=== PATIENT | male | born 1960 | race Hispanic/Latino ===

== ENCOUNTER 2020-09-21 08:26 | Outpatient (CLI) | payer BC | END 2020-09-21 08:27 | disposition home or self-care (01) | LOC: CSHWCC 08:26 | PROVIDERS: ATTEND Nurse Practitioner Family | DX: L98.499 Non-pressure chronic ulcer of skin of other sites with unspecified severity (principal); K94.09 Other complications of colostomy; I26.90 Septic pulmonary embolism without acute cor pulmonale; I82.811 Embolism and thrombosis of superficial veins of right lower extremity; M13.80 Other specified arthritis, unspecified site; Z85.038 Personal history of other malignant neoplasm of large intestine | CPT/HCPCS: 99212; G0463 ==